=== PATIENT | female | born 1990 | race Caucasian/White ===

== ENCOUNTER → 2016-08-17 | Outpatient (CLI) | payer OTHER ==
[~2016-08-17] MED LIST: ALBU0.086 INH; ALBU6.7H INH
== END ==
LOC: CLAB 14:55
PROVIDERS: ATTEND Obstetrics & Gynecology
DX: T80 Complications following infusion, transfusion and therapeutic injection (principal)
CPT/HCPCS: 36415; 86850; 86900; 86901; 96372; J2790; 90384